=== PATIENT | male | born 1965 | race Hispanic/Latino ===

== ENCOUNTER 2022-07-02 17:21 | Emergency (ER) | payer OTHER ==
[~2022-07-02] VITALS: Ht 167.6 cm; Wt 86.2 kg
[2022-07-02 17:54] VITALS: BP 131/91
== END 2022-07-02 22:16 | disposition home or self-care (01) ==
LOC: EDH 17:21
DX: M79.672 Pain in left foot (principal); M79.671 Pain in right foot; Z76.5 Malingerer [conscious simulation]